=== PATIENT | male | born 1945 | race Caucasian/White ===

== ENCOUNTER 2019-04-21 23:14 | Observation (INO) ==
[2019-04-21] MEDS ORDERED: GI Cocktail 40 ML EACH PO ONE (23:38)
--- NOTE | 2019-04-21 23:42 | Emergency Department Note ---
Disposition Clinical Impression: Epigastric abdominal pain, Small bowel obstruction Disposition: Admitted As Inpatient Condition: Fair Time of Disposition: 01:53 Abdominal Pain HPI - General Chief Complaint: ED Abdominal Pain Stated Complaint: abd pain Time Seen by Provider: 04/21/19 23:20 Source: patient Nursing Notes Reviewed: Yes Vital Signs Reviewed: Yes - History of Present Illness HPI Narrative: 73yo male presents from home for evaluation of epigastric abdominal pain. Patient had dinner approximately 5 hours prior to arrival consisted of potato, carrots, couple bites of meat. Several hours thereafter, he began having ways of epigastric abdominal pain. He had no nausea however, he gags himself forcing himself to vomit which improved his symptoms for a short time before they spontaneously returned. Emesis was nonbloody, bilious. His symptoms had waves of this sharp stabbing cramping epigastric abdominal pain which he describes as a squeezing. Not improved with Pepto-Bismol. PMH: Hyperlipidemia No history of CAD or ACS. No history of alcoholism or acid reflux. Habits: Has never smoked, no EtOH, no illicit substances Daily medications: Simvastatin, daily aspirin 81 mg Abdominal surgical history: Remote bilateral inguinal hernia repair ROS: Positive: Epigastric abdominal pain Negative: Fever, chills, nausea, chest pains, palpitations, dyspnea, diaphoresis, unusual back pain, radiation of abdominal pain, diarrhea, constipation, dysuria Pain Scale: 7 - Related Data Home Medications Medication Instructions Recorded Confirmed Atorvastatin 07/18/17 07/18/17 Previous Rx's Medication Instructions Recorded Ibuprofen [Motrin] 600 mg PO Q6HR PRN #20 tab 07/18/17 Allergies Allergy/AdvReac Type Severity Reaction Status Date / Time No Known Allergies Allergy Verified 04/21/19 23:17 All systems ED: reviewed and negative except as stated. Review of Systems: As Per HPI Abdominal Pain PMH - Past Medical History Medical history: Reports: hyperlipidemia Male Surgical History: Reports: herniorrhaphy, knee replacement Psychiatric history: Reports: no psych history - Social History Smoking status: Never smoker Alcohol use: Reports: none Drug use: Reports: none Physical Exam Vital Signs Reviewed General: Patient is alert, oriented, and in no acute distress. He appears in good health and younger than stated age. Head: atraumatic, normocephalic Eye: normal appearance, PERRL, EOMI, no scleral icterus, no conjunctival injection ENT: mucous membranes moist, normal external ear exam Neck: normal inspection, trachea midline, full ROM Chest: normal inspection, symmetric chest rise Respiratory: Good respiratory effort. Bilateral breath sounds are clear without wheezing, crackles, or rhonchi. Cardiovascular: Regular rate and rhythm. No clicks, rubs, gallops, or murmors. Normal heart sounds. Bilateral radial pulses 2/4 and equal. Abdomen: Bowel sounds present normoactive. Abdomen is soft, nondistended. Epigastrum is nontender until a wave of peristalsis at which time patient has moderately tender epigastrium. No guarding or rebound. No organomegaly noted. Musculoskeletal: Spontaneously moving all extremities. Skin: warm, dry, intact. Neuro: GCS 15. No focal neurologic deficits observed. Psych: Patient's affect is appropriate for situation. - General Limitations: no limitations General appearance: alert, in no apparent distress Course Course Narrative: Patient appears remarkably well. Clinical concern for possible small bowel obstruction given his remote abdominal surgery. He has no nausea or vomiting. He denies any for any analgesia at this time. Serum hematology, serum chemistry, urinalysis all unremarkable. CT abdomen pelvis with IV contrast concerning for small bowel traction versus ileus per radiology read. Likely, ileus is less likely. Suspect small bowel structures secondary to adhesions from remote bilateral inguinal hernia repair. I discussed the above the patient. He agrees for admission for IV fluids and continued monitoring. I discussed the above with the on-call surgical list, Dr. Leija, who agrees to accept the patient to her services. IV fluids, nothing by mouth. No further recommendations at this time. Abdomen/Pelvis CT 04/22/19 23:44 IMPRESSION: Multiple loops of dilated jejunal small bowel measure up to 3.2 cm in diameter and demonstrate air-fluid levels. Findings may represent partial small bowel obstruction versus adynamic ileus. Mild colonic diverticulosis without acute diverticulitis. Atherosclerosis. D/ / Claude Adhikari / Claude Adhikari Interpreting Provider: Claude Sessions Vital Signs Temperature 97.7 F 04/21/19 23:15 Pulse Rate 63 04/21/19 23:15 Respiratory Rate 20 04/21/19 23:15 Blood Pressure 178/100 04/21/19 23:15 O2 Sat by Pulse Oximetry 99 04/21/19 23:15 Temperature 97.7 F 04/21/19 23:15 Pulse Rate 54 04/22/19 01:16 Respiratory Rate 17 04/22/19 01:16 Blood Pressure 160/69 04/22/19 01:16 O2 Sat by Pulse Oximetry 98 04/22/19 01:16 Oxygen Delivery Oxygen Delivery Room Air Abdominal Pain - Lab Data Result diagrams: 04/21/19 23:47 04/21/19 23:47 Lab Results 04/21/19 04/21/19 04/21/19 Range/Units 23:47 23:47 23:47 WBC 11.0 (4.3-11.1) K/mcL RBC 4.85 (4.19-5.50) M/mcL Hgb 15.5 (12.9-16.9) g/dL Hct 44.3 (37.5-50.1) % MCV 91.3 (83.0-100.0) fL MCH 32.0 (28.0-33.3) pg MCHC 35.0 (31.6-35.5) g/dL RDW 12.5 (11.5-14.5) % Plt Count 257 (140-400) K/mcL MPV 9.8 (9.4-12.4) fL Sodium 137 (136-145) mEq/L Potassium 3.9 (3.5-5.1) mEq/L Chloride 103 (98-107) mEq/L Carbon Dioxide 25 (23-29) mEq/L BUN 20 (8-23) mg/dL Creatinine 0.83 (0.70-1.30) mg/dL Est GFR ( Amer) > 60 (> 60) Est GFR (Non-Af Amer) > 60 (> 60) BUN/Creatinine Ratio 24 (6-26) Glucose 113 H (70-105) mg/dL Calculated Osmolality 287 (280-300) Calcium 9.4 (8.6-10.3) mg/dL Total Bilirubin 0.6 (0.3-1.0) mg/dL Direct Bilirubin 0.2 (0.0-0.2) mg/dL Indirect Bilirubin 0.4 (0.0-1.2) mg/dL AST 21 (13-39) Units/L ALT 19 (7-52) Units/L Alkaline Phosphatase 75 (34-104) Units/L Serum Total Protein 7.0 (6.4-8.9) g/dL Albumin 4.3 (3.5-5.7) g/dL Globulin 2.7 (2.4-3.5) g/dL Albumin/Globulin Ratio 1.6 (1.1-2.2) Lipase 17 (11-82) Units/L Urine Color (Yellow) Urine Clarity (Clear) Urine pH (5.0-8.0) pH Units Ur Specific [place] (1.010-1.025) Urine Protein (Neg-Trace) mg/dL Urine Glucose (UA) (Normal) mg/dL Urine Ketones (Negative) mg/dL Urine Blood (Negative) Urine Nitrite (Negative) Urine Bilirubin (Negative) Urine Urobilinogen (Normal) mg/dL Ur Leukocyte Esterase (Negative) 04/22/19 Range/Units 01:14 WBC (4.3-11.1) K/mcL RBC (4.19-5.50) M/mcL Hgb (12.9-16.9) g/dL Hct (37.5-50.1) % MCV (83.0-100.0) fL MCH (28.0-33.3) pg MCHC (31.6-35.5) g/dL RDW (11.5-14.5) % Plt Count (140-400) K/mcL MPV (9.4-12.4) fL Sodium (136-145) mEq/L Potassium (3.5-5.1) mEq/L Chloride (98-107) mEq/L Carbon Dioxide (23-29) mEq/L BUN (8-23) mg/dL Creatinine (0.70-1.30) mg/dL Est GFR ( Amer) (> 60) Est GFR (Non-Af Amer) (> 60) BUN/Creatinine Ratio (6-26) Glucose (70-105) mg/dL Calculated Osmolality (280-300) Calcium (8.6-10.3) mg/dL Total Bilirubin (0.3-1.0) mg/dL Direct Bilirubin (0.0-0.2) mg/dL Indirect Bilirubin (0.0-1.2) mg/dL AST (13-39) Units/L ALT (7-52) Units/L Alkaline Phosphatase (34-104) Units/L Serum Total Protein (6.4-8.9) g/dL Albumin (3.5-5.7) g/dL Globulin (2.4-3.5) g/dL Albumin/Globulin Ratio (1.1-2.2) Lipase (11-82) Units/L Urine Color Yellow (Yellow) Urine Clarity Clear (Clear) Urine pH 8.5 H (5.0-8.0) pH Units Ur Specific [place] 1.010 (1.010-1.025) Urine Protein Trace (Neg-Trace) mg/dL Urine Glucose (UA) Normal (Normal) mg/dL Urine Ketones 15 H (Negative) mg/dL Urine Blood Negative (Negative) Urine Nitrite Negative (Negative) Urine Bilirubin Negative (Negative) Urine Urobilinogen Normal (Normal) mg/dL Ur Leukocyte Esterase Negative (Negative) Attestation Statement - Attestation Attestation: Dr. Obregon note:/ Attestation: Patient seen in conjunction with emergency medicine resident Dr. Alba. Please see his charting for complete documentation. Spent [id number] time with the patient and I agree with the patient's treatment and disposition. Progressive abdominal pain over the last few hours in the epigastric region. Comes and goes in waves. Nausea without vomiting. No lower abdominal pain or diarrhea. Small bowel obstruction by history or examination CT scan. Pain is been treated. He is nothing by mouth, admitted to the surgeon. Lab results reviewed.
[2019-04-21] MEDS ORDERED: Isovue-370 500 ML BOTTLE IVP ONE (23:44)
[2019-04-22 00:02] LABS: Hematocrit 44.3 % (37.5-50.1); Hemoglobin 15.5 g/dL (12.9-16.9); Mean Corpuscular Volume 91.3 fL (83.0-100.0); Mean Platelet Volume 9.8 fL (9.4-12.4); Platelet Count 257 K/mcL (140-400); Red Blood Count 4.85 M/mcL (4.19-5.50); Red Cell Distribution Width 12.5 % (11.5-14.5)
[2019-04-22 00:22] LABS: Alanine Aminotransferase 19 Units/L (7-52); Albumin 4.3 g/dL (3.5-5.7); Albumin/Globulin Ratio 1.6 (1.1-2.2); Alkaline Phosphatase 75 Units/L (34-104); Aspartate Amino Transferase 21 Units/L (13-39); BUN/Creatinine Ratio 24 (6-26); Bilirubin,Direct 0.2 mg/dL (0.0-0.2); Bilirubin,Indirect 0.4 mg/dL (0.0-1.2); Bilirubin,Total 0.6 mg/dL (0.3-1.0); Blood Urea Nitrogen 20 mg/dL (8-23); Calcium 9.4 mg/dL (8.6-10.3); Carbon Dioxide 25 mEq/L (23-29); Chloride 103 mEq/L (98-107); Globulin 2.7 g/dL (2.4-3.5); Glucose 113 mg/dL (70-105); Osmolality,Calculated 287 (280-300); Potassium 3.9 mEq/L (3.5-5.1); Sodium 137 mEq/L (136-145); eGFR For Non-African Americans > 60 (> 60)
[2019-04-22 01:29] LABS: Bilirubin,Urine Negative (Negative); Blood,Urine Negative (Negative); Clarity,Urine Clear (Clear); Color,Urine Yellow (Yellow); Glucose,Urine (UA) Normal (Normal); Ketones,Urine 15 mg/dL (Negative); Leukocyte Esterase,Urine Negative (Negative); Nitrite,Urine Negative (Negative); PH,Urine 8.5 pH Units (5.0-8.0); Protein,Urine Trace mg/dL (Neg-Trace); Urobilinogen,Urine Normal (Normal)
[2019-04-22] MEDS ORDERED: 0.9 % Sodium Chloride 1,000 ML ONE (02:06)
[2019-04-22] MEDS: 0.9 % Sodium Chloride 1,000 ML IVC SCH ×2 (02:09→04:03)
[2019-04-22] MEDS: Pantoprazole 40 MG VIAL IVP SCH ×2 (04:03→09:01)
--- NOTE | 2019-04-22 07:03 | Acute Care Surgery H&P ---
Date of Encounter: 04/22/19 Time of Encounter: 07:00 Assessment and Plan (1) Small bowel obstruction Current Visit: Yes Status: Acute The assessment and plan as outlined above was discussed with the patient and/or family members who expressed understanding and agreement. All questions were answered. Partial SBO is already resolving. Will trial clears. Advnace diet as tolerated. If pt doing well this afternoon, will DC home. History of Present Illness Chief complaint: abdominal pain HPI: Mr. Ca is a 73 year old male who presents to [facility] c/o progressively worsening mid-epigatric and periumbilical abdominal pain and nausea. At the time of presentation, he reports one episode of vomiting green, bilious emesis with undigested food. Denies hematemesis. Reports 2 BM since admission and feeling much better. Denies any further nausea. Admits he still feels a little bloated. Denies CP or SOB. Denies fever. Past Med Surg Social Fam HX - Past Medical History Medical history: hyperlipidemia Psychiatric history: no psych history - Past Surgical History Surgical History: herniorrhaphy, knee replacement - Social History Smoking Status: Never smoker Smokeless Tobacco Status: No Alcohol use: none Drug use: none Medications and Allergies Atorvastatin 07/18/17 [History] Ibuprofen [Motrin] 600 mg PO Q6HR PRN #20 tab 07/18/17 [Rx] Allergy/AdvReac Type Severity Reaction Status Date / Time No Known Allergies Allergy Verified 04/21/19 23:17 Review of Systems All systems PM: The remainder of the systems were reviewed and are negative - Constitutional as per HPI, no anorexia, no chills, no fatigue, no fever(s), no night sweats, no weight loss - EENT Nose, mouth and throat: dry mouth, no dizziness, no nasal congestion, no nasal discharge, no sinus pain, no sinus pressure, no sore throat - Cardiovascular no chest pain, no diaphoresis, no dyspnea, no edema - Respiratory no cough, no dyspnea, no wheezing - Gastrointestinal abdominal pain (resolved), bloating, constipation (no flatus until after hospital admission), cramping, nausea, vomiting (N/V resolved) - Genitourinary no dysuria, no flank pain, no urinary frequency - Musculoskeletal back pain, joint swelling, limited range of motion, neck pain - Integumentary no dry skin, no pruritus, no rash, no wounds, no jaundice - Neurological no dizziness, no focal weakness, no weakness - Psychiatric no anxiety, no depression - Hematologic/Lymphatic no easy bleeding, no easy bruising General Surgery Exam Initial Vital Signs Temp Pulse Resp BP Pulse Ox 97.7 F 63 20 178/100 99 04/21/19 23:15 04/21/19 23:15 04/21/19 23:15 04/21/19 23:15 04/21/19 23:15 - General physical appearance well developed, well nourished, no distress, no pain - Eyes PERRL, normal ocular movement. negative: icteric - ENT no congestion, dry mucosa. negative: nasal discharge - Neck no masses, no lymphadectomy, no venous distension - Respiratory normal respiratory effort, clear to auscultation - Cardiovascular Cardiovascular exam: Present: RRR. Absent: murmurs - Abdomen Abdomen general surgery: Present: bowel sounds present, soft, non tender, distended (very mild) - Genitourinary Present: normal penis with no external lesions - Integumentary Integumentary general surgery: Present: warm and dry - Neurologic Present: CN 2-12 grossly intact, normal coordination - Musculoskeletal Present: normal gait, normal posture - Psychiatric Psychiatric general surgery: Present: A&Ox3, appropriate Results - Labs 04/21/19 23:47 04/21/19 23:47 Abnormal lab results Glucose 113 mg/dL (70-105) H 04/21/19 23:47 8.5 pH Units (5.0-8.0) H 04/22/19 01:14 15 mg/dL (Negative) H 04/22/19 01:14 Diabetes panel 04/21/19 Range/Units 23:47 Sodium 137 (136-145) mEq/L Potassium 3.9 (3.5-5.1) mEq/L Chloride 103 (98-107) mEq/L Carbon Dioxide 25 (23-29) mEq/L BUN 20 (8-23) mg/dL Creatinine 0.83 (0.70-1.30) mg/dL Glucose 113 H (70-105) mg/dL Calcium 9.4 (8.6-10.3) mg/dL AST 21 (13-39) Units/L ALT 19 (7-52) Units/L Alkaline Phosphatase 75 (34-104) Units/L Albumin 4.3 (3.5-5.7) g/dL Calcium panel 04/21/19 Range/Units 23:47 Calcium 9.4 (8.6-10.3) mg/dL Albumin 4.3 (3.5-5.7) g/dL Pituitary panel 04/21/19 Range/Units 23:47 Sodium 137 (136-145) mEq/L Potassium 3.9 (3.5-5.1) mEq/L Chloride 103 (98-107) mEq/L Carbon Dioxide 25 (23-29) mEq/L BUN 20 (8-23) mg/dL Creatinine 0.83 (0.70-1.30) mg/dL Glucose 113 H (70-105) mg/dL Calcium 9.4 (8.6-10.3) mg/dL Adrenal panel 04/21/19 Range/Units 23:47 Sodium 137 (136-145) mEq/L Potassium 3.9 (3.5-5.1) mEq/L Chloride 103 (98-107) mEq/L Carbon Dioxide 25 (23-29) mEq/L BUN 20 (8-23) mg/dL Creatinine 0.83 (0.70-1.30) mg/dL Glucose 113 H (70-105) mg/dL Calcium 9.4 (8.6-10.3) mg/dL Total Bilirubin 0.6 (0.3-1.0) mg/dL AST 21 (13-39) Units/L ALT 19 (7-52) Units/L Alkaline Phosphatase 75 (34-104) Units/L Albumin 4.3 (3.5-5.7) g/dL All other labs normal. - Imaging CT scan - abdomen: image reviewed (Dilated loops of jejunum; SBO vs ileus) CT scan - pelvis: image reviewed
[2019-04-22 10:08] VITALS: BP 125/79
--- NOTE | 2019-04-22 10:38 | Discharge Summary ---
Date of Encounter: 04/22/19 Time of Encounter: 10:33 - Discharge Diagnosis (1) Small bowel obstruction Priority: Primary Status: Resolved (2) Epigastric abdominal pain Priority: Secondary Status: Resolved General Surgery Exam Initial Vital Signs Temp Pulse Resp BP Pulse Ox 97.7 F 63 20 178/100 99 04/21/19 23:15 04/21/19 23:15 04/21/19 23:15 04/21/19 23:15 04/21/19 23:15 - Hospital Course Hospital course: Mr. Ca is a 73 year old male who presented to the ED with complaints of epigastric abdominal pain with associated nausea and vomiting. He had a CT scan which showed concerns for partial small bowel obstruction. The patient was admitted for observation and treatment. His symptoms have resolved with conservative therapies. He has had 2 bowel movements since admission. He tolerated clear liquids without any recurrence of symptoms. His diet was advanced to regular for lunch. We will discharge to home if the patient tolerates a regular diet and plan for outpatient follow-up as needed. - Time Spent with Patient Total time spent providing and/or coordinating discharge services: Less than 30 minutes - Discharge Medications Prescriptions: Continued Atorvastatin Ibuprofen [Motrin] 600 mg PO Q6HR PRN #20 tab PRN Reason: Pain Home Medications: Atorvastatin 07/18/17 [History] Ibuprofen [Motrin] 600 mg PO Q6HR PRN #20 tab 07/18/17 [Rx] Allergies/Adverse Reactions: Allergy/AdvReac Type Severity Reaction Status Date / Time No Known Allergies Allergy Verified 04/21/19 23:17 Date of admission: 04/22/19 02:36 Primary care physician: Bala Miranda MD Discharging clinician: Yazmin Jennings (Elsy Horner) Anticipated date of discharge: 04/22/19 Labs on day of discharge: Labs from last 24 hours 04/22/19 04/21/19 04/21/19 01:14 23:47 23:47 WBC RBC Hgb Hct MCV MCH MCHC RDW Plt Count MPV Sodium 137 Potassium 3.9 Chloride 103 Carbon Dioxide 25 BUN 20 Creatinine 0.83 Est GFR ( Amer) > 60 Est GFR (Non-Af Amer) > 60 BUN/Creatinine Ratio 24 Glucose 113 H Calculated Osmolality 287 Calcium 9.4 Total Bilirubin 0.6 Direct Bilirubin 0.2 Indirect Bilirubin 0.4 AST 21 ALT 19 Alkaline Phosphatase 75 Serum Total Protein 7.0 Albumin 4.3 Globulin 2.7 Albumin/Globulin Ratio 1.6 Lipase 17 Urine Color Yellow Urine Clarity Clear Urine pH 8.5 H Ur Specific [place] 1.010 Urine Protein Trace Urine Glucose (UA) Normal Urine Ketones 15 H Urine Blood Negative Urine Nitrite Negative Urine Bilirubin Negative Urine Urobilinogen Normal Ur Leukocyte Esterase Negative 04/21/19 23:47 WBC 11.0 RBC 4.85 Hgb 15.5 Hct 44.3 MCV 91.3 MCH 32.0 MCHC 35.0 RDW 12.5 Plt Count 257 MPV 9.8 Sodium Potassium Chloride Carbon Dioxide BUN Creatinine Est GFR ( Amer) Est GFR (Non-Af Amer) BUN/Creatinine Ratio Glucose Calculated Osmolality Calcium Total Bilirubin Direct Bilirubin Indirect Bilirubin AST ALT Alkaline Phosphatase Serum Total Protein Albumin Globulin Albumin/Globulin Ratio Lipase Urine Color Urine Clarity Urine pH Ur Specific [place] Urine Protein Urine Glucose (UA) Urine Ketones Urine Blood Urine Nitrite Urine Bilirubin Urine Urobilinogen Ur Leukocyte Esterase - Impressions ITS Impressions Abdomen/Pelvis CT 04/22/19 23:44 IMPRESSION: Multiple loops of dilated jejunal small bowel measure up to 3.2 cm in diameter and demonstrate air-fluid levels. Findings may represent partial small bowel obstruction versus adynamic ileus. Mild colonic diverticulosis without acute diverticulitis. Atherosclerosis. D/ / Claude Adhikari / Claude Adhikari Interpreting Provider: Claude Adhikari - Patient Status Disposition: Home, Self-Care Condition: Good Functional capacity at discharge: independent ambulation Overall status at discharge: patient is back to baseline - Discharge Instructions Follow Up With: Bala Miranda MD [Primary Care Provider] - (1-2 week hospital follow-up) - Diet and Activity Activity: increase activity as tolerated Diet: advance to your usual diet - Attending Attestation For this encounter, I have reviewed the STAFF RESEARCH SCIENTIST or PA documentation, treatment plan, and medical decision making; and I have had face to face time with this patient.
--- NOTE | 2019-04-22 23:04 | Electrocardiograph Report ---
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
== END 2019-04-22 14:01 | disposition home or self-care (01) ==
LOC: 3ANU 23:14 → EMEROOARM 23:14 → 3ANU 04-22 03:21
PROVIDERS: ADMIT Surgery; ATTEND Surgery